=== PATIENT | female | born 1995 | race American Indian/Alaskan Native ===

== ENCOUNTER 2021-09-18 19:14 | Emergency (ER) | payer SELFPAY ==
--- NOTE | 2021-09-18 20:44 | XRay Report ---
LEFT HUMERUS 2 VIEWS 2022 INDICATION: cut by glass, left upper arm COMPARISON: None available. FINDINGS: No fractures or dislocations are seen. No obvious soft tissue foreign bodies or soft tissue gas are noted. Signer Name: Ivan Crane MD Signed: 09/18/2021 8:39 PM Workstation Name: [id number]
[2021-09-18] MEDS ORDERED: TETANUS,DIPH,PERTUSS(ACELL) VACCINE 0.5 ML SYRINGE IM ONE (20:59)
[2021-09-18] MEDS ORDERED: LIDOCAINE (2%) 20 MG/1 ML VIAL 20 ML MDV INFILTRATI STA (20:59)
--- NOTE | 2021-09-18 22:53 | Emergency Department Report ---
ED Laceration HPI - HPI Chief Complaint: Wound/Laceration Stated Complaint: NEED STITCHES Time Seen by Provider: 09/18/21 20:59 Occurred When: Today Location: Upper Extremity (left upper arm laceration adjacent to axilla) Severity: mild Tetanus Status: Up to Date Laceration Symptoms: Yes Pain, No Foreign Body Sensation, No Numbness, No Weakness Other History: 26-year-old female presents emergency department complaining of laceration to the left arm near the axillary region which occurred around 3 PM today after tripping and falling landing on a broken [employer] gin bottle. Ports in a laceration bleeding minimal pain ED Review of Systems ROS: Stated complaint: NEED STITCHES Other details as noted in HPI Comment: All other systems reviewed and negative ED Past Medical Hx - Past Medical History Previous Medical History?: Yes Hx Asthma: Yes - Surgical History Past Surgical History?: No - Social History Smoking Status: Never Smoker Substance Use Type: Marijuana - Medications Home Medications: Home Medications Medication Instructions Recorded Confirmed Last Taken Type Ibuprofen [Motrin 800 MG tab] 800 mg PO TID #30 tablet 06/23/13 Unknown Rx Acetaminophen/Codeine [Tylenol 1 tab PO Q6H PRN #10 tab 09/18/21 Unknown Rx /Codeine # 3 tab] Chlorhexidine Gluconate [Hibiclens] 10 ml TP BID #240 09/18/21 Unknown Rx Laceration Physical Exam - Exam General: Vital signs noted. No distress. Alert and acting appropriately. Laceration Location: Upper Extremity Full Body Front + Back: 1 - laceration to left axilla x 2 Laceration Exam: Yes Normal Distal CMS, No Foreign Body, No Exposed Tendon, Vessel, or Nerve, No Tendon Injury ED Course Vital Signs 09/18/21 19:37 Temperature 99.1 F Pulse Rate 106 H Respiratory 18 Rate Blood Pressure 121/78 O2 Sat by Pulse 96 Oximetry - Laceration /Wound Repair Left Arm Wound Location: upper extremity Wound Length (cm): 6 Wound's Depth, Shape: linear Irrigated w/ Saline (ccs): 25 Betadine Prep?: Yes Anesthesia: 1% Lidocaine Volume Anesthetic (ccs): 5 Wound Debrided: minimal Wound Repaired With: sutures Suture Size/Type: 3:0 Number of Sutures: 6 Layer Closure?: Yes Deep Layer Suture Size/Type: 4:0 Number Deep Layer Sutures: 5 Sterile Dressing Applied?: Yes Critical care attestation.: If time is entered above; I have spent that time in minutes in the direct care of this critically ill patient, excluding procedure time. ED Disposition Clinical Impression: Laceration of arm, Tetanus toxoid inoculation Disposition: HOME / SELF CARE / HOMELESS Is pt being admited?: No Does the pt Need Aspirin: No Condition: Stable Instructions: VIS, Tetanus, Diphtheria (Td); Tetanus, Diphtheria, Pertussis (Tdap) - CDC, Laceration Care, Adult Additional Instructions: Please be sure to follow-up in 7 to 10 days to be evaluated for possible suture removal Prescriptions: Chlorhexidine Gluconate [Hibiclens] 10 ml TP BID #240 Acetaminophen/Codeine [Tylenol /Codeine # 3 tab] 1 tab PO Q6H PRN #10 tab PRN Reason: arm pain Referrals: [facility] [Provider Group] - 3-5 Days
[2021-09-19 00:26] VITALS: BP 118/76
== END 2021-09-19 00:27 | disposition home or self-care (01) ==
LOC: ED 19:14
DX: S41.112A Laceration without foreign body of left upper arm, initial encounter (principal); W01.0XXA Fall on same level from slipping, tripping and stumbling without subsequent striking against object, initial encounter; Y93.89 Activity, other specified; Y92.89 Other specified places as the place of occurrence of the external cause; Y99.8 Other external cause status
CPT/HCPCS: 12032; 73060; 90471; 90715; 99283; J3490

== ENCOUNTER 2021-10-11 11:55 | Emergency (ER) | payer SELFPAY ==
[2021-10-11 12:59] VITALS: BP 118/70
--- NOTE | 2021-10-11 13:41 | Emergency Department Report ---
Suture/Staple Removal - [facility] Chief Complaint: Laceration/Recheck/Suture Stated Complaint: SUTURE REMOVAL Time Seen by Provider: 10/11/21 13:06 When Sutures or Georges Placed: >14 Days Ago (Sutures placed here in ED 09/18/2021) Wound Location: Left upper arm/axilla ED Review of Systems ROS: Stated complaint: SUTURE REMOVAL Other details as noted in HPI Constitutional: denies: chills, fever, malaise, weakness Skin: denies: lesions, change in color, pruritus Neurological: denies: numbness, paresthesias Other: Patient denies redness, swelling, or purulent drainage ED Past Medical Hx - Past Medical History Hx Asthma: Yes - Social History Smoking Status: Never Smoker Substance Use Type: Marijuana - Medications Home Medications: Home Medications Medication Instructions Recorded Confirmed Last Taken Type Ibuprofen [Motrin 800 MG tab] 800 mg PO TID #30 tablet 06/23/13 Unknown Rx Acetaminophen/Codeine [Tylenol 1 tab PO Q6H PRN #10 tab 09/18/21 Unknown Rx /Codeine # 3 tab] Chlorhexidine Gluconate [Hibiclens] 10 ml TP BID #240 09/18/21 Unknown Rx Suture Removal Exam - Exam General: Vital signs noted. No distress. Alert and acting appropriately. Wound: No Pathologic Erythema, No Tenderness, No Drainage, No Pus, No Wound Dehiscence Other Systems: All other systems reviewed and are unremarkable. ED Course Vital Signs 10/11/21 12:57 Temperature 97.6 F Pulse Rate 89 Respiratory 16 Rate Blood Pressure 118/70 [Right] O2 Sat by Pulse 99 Oximetry - Procedure Description Procedures done: 11 simple sutures removed from 2 separate wounds; there is no surrounding erythema or induration or wound dehiscence noted; no purulent drainage noted or bleeding. Patient tolerated procedure well without any immediate complication ED Recheck MDM - Core Measures AMI Core Measures Followed: No - Medical Decision Making Sutures removed. Patient tolerated procedure well without any immediate complications. She is well-appearing and stable for discharge home. Recommend Neosporin 3 times daily to aid in continued wound healing for 5 to 7 days. Discussed signs and symptoms that should prompt immediate return to ED with patient verbalizes understanding Critical care attestation.: If time is entered above; I have spent that time in minutes in the direct care of this critically ill patient, excluding procedure time. ED Disposition Clinical Impression: Encounter for removal of sutures Disposition: HOME / SELF CARE / HOMELESS Is pt being admited?: No Condition: Stable Instructions: Wound Closure Removal, Care After Referrals: [facility] [Provider Group] - 3-5 Days
== END 2021-10-11 14:25 | disposition home or self-care (01) ==
LOC: ED 11:55
DX: S41.112D Laceration without foreign body of left upper arm, subsequent encounter (principal); X58.XXXD Exposure to other specified factors, subsequent encounter; F12.90 Cannabis use, unspecified, uncomplicated; J45.909 Unspecified asthma, uncomplicated